=== PATIENT | female | born 1950 | race Caucasian/White ===

== ENCOUNTER 2017-01-15 09:17 | Inpatient (IN) | payer OTHER ==
[~2017-01-15] VITALS: Ht 160 cm; Wt 59.1 kg
[~2017-01-15 09:17] MED LIST: ASPIR 8181 M1 PO; FISH OIL 1,0001 EAC7 PO; FOOD ENZYME PO; GLUCOSAMINE &1 EAC1 PO; MULTIVITAMIN1 EAC2 PO; OMEGA 3-6-9 CO1 EACH PO; PROBIOTIC1 EAC1 PO; TEMOVATE 0.05%15 G1 TP; [UNRECOGNIZED DRUG - OTHER] PO
[2017-01-15 10:37] VITALS: BP 151/72
[2017-01-15 15:42] VITALS: BP 131/69
[2017-01-15 16:35] VITALS: BP 124/70
[2017-01-15 17:35] VITALS: BP 118/62
[2017-01-15 19:16] VITALS: BP 133/64
== END 2017-01-15 19:10 | disposition home or self-care (01) | DRG 470 ==
LOC: 2SOUTH 09:17
PROC: 0SRC0L9 Replacement of Right Knee Joint with Medial Unicondylar Synthetic Substitute, Cemented, Open Approach (ICD-10-PCS; principal; 2017-01-15)
PROC: 3E0U3BZ Introduction of Anesthetic Agent into Joints, Percutaneous Approach (ICD-10-PCS; 2017-01-15)
DX: M17.11 Unilateral primary osteoarthritis, right knee (principal); Z88.0 Allergy status to penicillin; Z79.82 Long term (current) use of aspirin
CPT/HCPCS: C1713; J0131; J0690; J1100; J1885; J2250; J2405; J2795; J3010; J7050